=== PATIENT | male | born 1960 | race African-American/Black ===

== ENCOUNTER 2020-09-18 20:53 | Emergency (ER) | payer OTHER ==
[~2020-09-18] VITALS: Ht 188 cm; Wt 127.0 kg
[2020-09-18 22:16] LABS: Basophils # (auto) 0 10 ^3/uL (0-0.2); Eosinophils # (auto) 0 10 ^3/uL (0-0.8); Hematocrit 32.6 % (41.0-53.0); Hemoglobin 10.8 g/dL (13.5-17.5); Lymphocytes # (auto) 0.7 10 ^3/uL (0.4-5.4); Lymphocytes % (auto) 5.7 % (10.0-50.0); Mean Corpuscular Hemoglobin 29.7 pg (28.0-32.0); Mean Corpuscular Hgb Conc. 32.9 g/dL (32.0-36.0); Mean Corpuscular Volume 90.2 fL (80.0-100.0); Neutrophils # (auto) 10.9 10 ^3/uL (1.6-8.6); Neutrophils % (auto) 86.3 % (37.0-80.0); Nucleated Red Blood Cells % 0.1 %; Red Blood Cells 3.62 10^6/uL (4.5-5.90); Red Cell Distribution Width 13.8 % (11.8-14.3); White Blood Cell 12.7 10^3/uL (4.4-10.8)
[2020-09-18 22:30] LABS: INR 0.97 (0.9-1.15)
[2020-09-18 22:37] LABS: Albumin 2.5 g/dL (3.4-5.0); Calcium 8.5 mg/dL (8.5-10.1); Potassium 4.3 mmol/L (3.5-5.1)
[2020-09-18 22:39] LABS: Lactic Acid w/Reflex 2.1 mmol/L (0.4-2.0)
[2020-09-18 22:48] LABS: BUN/Creatinine Ratio 13.6; Bilirubin, Total 0.3 mg/dL (0.2-1.0); Total Protein 6.7 g/dL (6.4-8.2)
[2020-09-19] MEDS ORDERED: ASPirin 325 MG TAB PO ONE (00:15)
[2020-09-19] MEDS ORDERED: DexAMETHasone SOD PHOS 10MG/1ML VIAL INJ IV ONE (01:45)
[2020-09-19] MEDS ORDERED: DOCUSATE SOD 100 MG CAP PO PRN (02:30)
[2020-09-19] MEDS ORDERED: ALUM & MAG HYDROX-SIMETH LIQ(MAALOX) 30 ML PO PRN (02:30)
[2020-09-19] MEDS ORDERED: TEMAZEPAM 15 MG CAP PO PRN (02:30)
[2020-09-19] MEDS ORDERED: ACETAMINOPHEN 500 MG TAB PO PRN (02:30)
[2020-09-19] MEDS ORDERED: DEXTROSE (50%) 50ML SYRG IV PRN (02:30)
[2020-09-19] MEDS ORDERED: REMDESIVIR PER PHARMACY 0 ML IV SCH (02:30)
[2020-09-19] MEDS ORDERED: HYDROcodone-ACET 5/325MG TAB PO PRN (02:30)
[2020-09-19] MEDS ORDERED: MORPHINE SULF INJ 2 MG/ML SYRINGE 1ML IV PRN (02:30)
[2020-09-19] MEDS: SODIUM CHLORIDE 0.9% 1,000 ML IV SCH ×2 (02:30→08:33)
[2020-09-19] MEDS ORDERED: ACETAMINOPHEN 325 MG TAB PO PRN (02:30)
[2020-09-19] MEDS ORDERED: ONDANSETRON HCL 4 MG/2 ML VIAL IV PRN (02:30)
[2020-09-19] MEDS ORDERED: ALBUTEROL SULF HFA 90MCG INH 200DOSE IN PRN (02:30)
[2020-09-19] MEDS: ACCU-CHEK COMFORT CURVE STRIP VI SCH ×2 (08:33→11:35)
[2020-09-19] MEDS: InsuLIN REG 1unit/0.01ml Soln (100units/ml) SC SCH ×2 (08:33→11:46)
[2020-09-19] MEDS ORDERED: FLORASTOR (S. BOULARDII) 250 MG CAP PO SCH (10:00)
[2020-09-19] MEDS ORDERED: ZINC SULFATE 220mg CAP or TAB PO SCH (10:00)
[2020-09-19] MEDS ORDERED: BUDESONIDE (INHALATION) 180 MCG IH IN SCH (10:00)
[2020-09-19] MEDS ORDERED: ENOXAPARIN SOD 40 MG/0.4 ML SYRINGE SC SCH (10:00)
[2020-09-19] MEDS ORDERED: CHOLECALCIFEROL (VITD3) 2,000 UNIT CAP/TAB PO SCH (10:00)
[2020-09-19] MEDS ORDERED: ASCORBIC ACID 1,000 MG TAB PO SCH (10:00)
[2020-09-19] MEDS ORDERED: DexAMETHasone SOD PHOS 10MG/1ML VIAL INJ IV SCH (10:00)
[2020-09-19] MEDS ORDERED: AZITHROMYCIN 500MG/ 250ML 250 ML IV SCH (10:00)
[2020-09-19] MEDS ORDERED: LOSA-69 PO (11:06)
[2020-09-19] MEDS ORDERED: FURO80TA3 PO (11:06)
[2020-09-19] MEDS ORDERED: DULO1CAP6 PO (11:06)
[2020-09-19] MEDS ORDERED: APIX2.5T PO (11:06)
[2020-09-19] MEDS ORDERED: FAMO40TA7 PO (11:06)
[2020-09-19] MEDS ORDERED: ATOR20TA50 PO (11:06)
[2020-09-19] MEDS ORDERED: CARV6.2551 PO (11:06)
[2020-09-19] MEDS ORDERED: ASPI81CH59 PO (11:06)
[2020-09-19] MEDS ORDERED: ISOS1TAB28 PO (11:06)
[2020-09-19] MEDS ORDERED: NIFE1TAB30 PO (11:06)
[2020-09-19] MEDS ORDERED: ALLO100T PO (11:06)
[2020-09-19] MEDS ORDERED: HYDR-4298 PO (11:06)
[2020-09-19] MEDS ORDERED: LIDO1PAD55 TOP (11:06)
[2020-09-19] MEDS ORDERED: INSU1INJ14 SC (11:06)
[2020-09-19] MEDS ORDERED: MONT10TA42 PO (11:06)
[2020-09-19] MEDS ORDERED: ASPI1TAB19 PO (11:08)
[2020-09-19] MEDS ORDERED: INSU100I4 (11:14)
[2020-09-19] MEDS ORDERED: LEVA1NEB5 NEB (11:14)
[2020-09-19] MEDS ORDERED: ERGO2000 PO (11:14)
[2020-09-19] MEDS ORDERED: CHOL500021 OR (11:14)
[2020-09-19] MEDS ORDERED: ERGO1CAP23 PO (11:18)
[2020-09-19 13:11] VITALS: BP 145/82
== END 2020-09-19 16:25 | disposition left against medical advice (07) ==
LOC: ER 20:55
DX: U07.1 COVID-19 (principal); J12.82 Pneumonia due to coronavirus disease 2019; I21.4 Non-ST elevation (NSTEMI) myocardial infarction; N17.9 Acute kidney failure, unspecified; I12.9 Hypertensive chronic kidney disease with stage 1 through stage 4 chronic kidney disease, or unspecified chronic kidney disease; E11.22 Type 2 diabetes mellitus with diabetic chronic kidney disease; N18.4 Chronic kidney disease, stage 4 (severe); Z86.73 Personal history of transient ischemic attack (TIA), and cerebral infarction without residual deficits
CPT/HCPCS: 36415; 71045; 80053; 82728; 83036; 83605; 83615; 83735; 84484; 85025; 85379; 85610; 86141; 87040; 87426; 93005; 99285; J0456; J1100; J1650; J1815; J7030